=== PATIENT | male | born 2000 | race Asian ===

== ENCOUNTER 2023-07-07 00:31 | Emergency (ER) | payer SELFPAY ==
[~2023-07-07] VITALS: Ht 162.6 cm; Wt 70.3 kg
[2023-07-07 00:51] VITALS: BP 114/68; PULSE 134; RESP 20; TEMP 97.4; O2SAT 97
[2023-07-07] MEDS ORDERED: NACL 0.9% 1,000 ML IV ONE (03:10)
[2023-07-07 03:25] LABS: BASOPHILS % (AUTO) 0.4 % (0.0-2.0); EOSINOPHILS % (AUTO) 0.2 % (0.0-4.0); HEMATOCRIT 43.4 % (36-52); HEMOGLOBIN 14.6 g/dL (12.0-18.0); LYMPHOCYTES # (AUTO) 0.5 K/uL (2.0-11.5); LYMPHOCYTES % (AUTO) 8.8 % (20.5-51.1); MEAN CORPUSCULAR HEMOGLOBIN 29 pg (27-31); MEAN CORPUSCULAR HGB CONC 34 g/dL (33-37); MEAN CORPUSCULAR VOLUME 86.4 fL (80-94); MONOCYTES % (AUTO) 17.8 % (1.7-9.3); NEUTROPHILS # (AUTO) 4.3 K/uL (1.8-7.7); PLATELET COUNT (AUTO) 231 K/uL (140-450); RED BLOOD CELL COUNT(AUTO) 5.02 MIL/uL (4.20-6.10); RED CELL DISTRIBUTION WIDTH 13.6 % (11.6-13.7); WHITE BLOOD COUNT (AUTO) 5.9 K/uL (4.8-10.8)
[2023-07-07 03:48] LABS: ALBUMIN 4.2 g/dL (3.4-5.0); ANION GAP 13.4 (8-16); CALCIUM 9.3 mg/dL (8.5-10.1); CARBON DIOXIDE 29.2 mmol/L (21-32); CREATINE KINASE, TOTAL 115 U/L (39-308); CREATININE 1.2 mg/dL (0.6-1.3); POTASSIUM 3.6 mmol/L (3.5-5.1); TOTAL BILIRUBIN 0.4 mg/dL (0.0-1.0); TOTAL PROTEIN, SERUM 7.4 g/dL (6.4-8.2)
[2023-07-07 03:59] LABS: NEUTROPHILS % (AUTO) 72.8 % (42.2-75.2)
[2023-07-07 05:22] VITALS: BP 114/69; PULSE 126; RESP 20; TEMP 100.3; O2SAT 97
[2023-07-07 05:36] LABS: FLU A ANTIGEN negative (NEGATIVE); FLU B ANTIGEN NEGATIVE (NEGATIVE)
== END 2023-07-07 05:32 | disposition home or self-care (01) ==
LOC: MED 00:31
DX: B34.9 Viral infection, unspecified (principal); Z20.822 Contact with and (suspected) exposure to COVID-19; Z79.899 Other long term (current) drug therapy
CPT/HCPCS: 36415; 71045; 80053; 82550; 83605; 83690; 83880; 84484; 85025; 87040; 87426; 87804; 93005; 96360; 99285; J7030; Q0092